=== PATIENT | male | born 1995 | race Caucasian/White ===

== ENCOUNTER → 2020-06-07 | Outpatient (CLI) | payer OTHER ==
--- NOTE | 2020-06-14 07:59 | PF ---
[address] [address] PULMONARY FUNCTION REPORT Name: PILY VANESSA Room: [facility]#: [id number] Admission: 06/07/20 Attend Phys: Virgilio Wade MD Discharge: Date of : 89 Report #: [id number] THIS REPORT FOR: //name// CC: Virgilio Villarreal Beata DATE OF SERVICE: 06/07/2020 The FEV1/FVC ratio is normal at 83% with a forced vital capacity normal at 104%. The FEV1 is also normal at 105%. MBA95-13 is normal at 112%. The FEV1 is noted to be 4.95 L, this does not increase in value after the administration of a bronchodilator. There is no significant change in any of the other values mentioned here after the administration of a bronchodilator either. Only a spirometry was performed. IMPRESSION: Normal spirometry. Note that normal spirometry does not rule out bronchial asthma. <ELECTRONICALLY SIGNED> By: Edilberto Helms MD 06/14/20 [id number] Helms MD /nt
== END ==
LOC: M.PUL 16:30
PROVIDERS: ATTEND Orthopaedic Surgery
DX: J45.998 Other asthma (principal)